=== PATIENT | male | born 1990 | race Caucasian/White ===

== ENCOUNTER 2023-11-14 05:26 | Emergency (ER) | payer SELFPAY ==
[2023-11-14 05:38] VITALS: BP 130/114
--- NOTE | 2023-11-14 06:23 | ED.GENMED ---
Addendum entered and electronically signed by Suraj Ulrich DO 11/14/23 13:10:
Acetaminophen trending down
Original Note:
History of Present Illness
General
Chief Complaint: Crisis Evaluation
Source: patient
Exam Limitations: none
Time Seen by Provider: 11/14/23 06:04
Nursing documentation reviewed up to this point in time: agreed with
Travel History
Have you had any contact with someone who has COVID-19?: No
Do you have any symptoms of coronavirus? Fever > 100 degrees, chills, cough, shortness of breath, sore throat, loss of taste or smell, muscle aches, or headache?: No
History of Present Illness
History of Present Illness:
33-year-old male presents via police for evaluation apparently has been depressed, using methamphetamine took a bottle of Benadryl to try to harm himself denies any other coingestions
Has not slept in a few nights
Past History
Past History
ED Past Medical History: Psychiatric
Social History
Tobacco: Non-smoker
Alcohol: None
Employment: Employed
Review of Systems
Review of Systems
Constitutional: Reports sleep disturbance
EENT: Reports no symptoms
Cardiac: Reports no symptoms
ABD/GI: Reports no symptoms
Phy Exam
Physical Exam
Physical Exam:
Physical Exam
General: Pacing around the room
Neck: Lips are slightly
Heart: Tachycardic
Lungs: no acute respiratory distress. clear bilaterally
Neuro: alert and oriented. no focal neurological deficits
Skin: no rash
Psychiatric: Agitated tearful cooperative
Extremities: no edema.
Course
Orders/Labs/Results
Orders:
Orders
11/14/23 06:20
Electrocardiogram (*1) Stat
Reason for Study: Other
Other Reason for Exam: overdose
Cardiac Monitoring- Treatment ONCE
EKG- Treatment ONCE
IV Insert/Care/Rem.- Treatment PRN
Urine Drug Abuse Screen Urgent
0.9% Sodium Chloride 1000 ml [Nss] 1,000 ml IV BOLUS
Lorazepam [Ativan] 2 mg IV NOW STA
11/14/23 06:47
Crisis Consult Routine
Reason for Consult: manic od
11/14/23 06:49
Asenapine Sublingual [Saphris] 5 mg SL NOW STA
11/14/23 07:11
Haloperidol Lactate [Haldol] 5 mg .ROUTE .STK-MED ONE
Haloperidol Lactate [Haldol] 5 mg IM NOW STA
Lorazepam [Ativan] 2 mg IM NOW STA
11/14/23 08:12
Acetaminophen Urgent
Alcohol Urgent
Basic Metabolic Panel Urgent
Complete Blood Count/With Diff Urgent
Salicylate Urgent
Abnormal Lab Results
11/14/23
08:12
Absolute Lymphs (auto) 0.9 L 10^3/uL
(1.2-3.4)
Neutrophils % 83.1 H %
(42.2-75.2)
Lymphocytes % 11.2 L %
(20.5-51.1)
Salicylates < 1.0 L mg/dl
(2.0-20.0)
Acetaminophen 32 H ug/ml
(10-30)
11/14/23 08:12
11/14/23 08:12
Vital Signs
Initial and Last Documented VS:
Initial Vital Signs
Temp Pulse Resp BP Pulse Ox
97.8 F 109 24 130/114 94
11/14/23 05:38 11/14/23 05:38 11/14/23 05:38 11/14/23 05:38 11/14/23 05:38
Last Documented Vital Signs
Temp Pulse Resp BP Pulse Ox
97.8 F 109 24 130/114 94
11/14/23 05:38 11/14/23 05:38 11/14/23 05:38 11/14/23 05:38 11/14/23 05:38
MDM/Problems Addressed
Differential Diagnosis Includes:
Overdose bipolar amphetamine abuse
MDM/Problems Addressed:
Not sleeping over the
*Pulse Oximetry
Patient hypoxic: no
*EKG
Interpreted by ED Provider?: Yes
Interpretation: abnormal
Comparison EKG: no comparison EKG present
Heart Rate: 110
Rate: tachycardiac
Rhythm: sinus
Ischemia: non-specific ST changes
*Accessibility Lift Technician Interpretation
Rate: tachycardiac
Interpretation: abnormal
Heart Rate: 110
Rhythm: sinus
*Critical Care Note
Total Time (30-74mins, 75-104mins- exclusive of procedures): Not Applicable
Data Reviewed
Source: patient
Update Note
Update Note:
9:30 PM labs are noted does have some acetaminophen in his system perhaps he took Tylenol p.m. instead of Benadryl, will repeat his level in a few hours
ED Attending Note
-
Portions of this chart may have been created with voice recognition software.� Occasional wrong word or��sound alike� substitutions may have occurred due to the inherent limitations of voice recognition software.
Discharge Plan
Departure
Prescriptions:
No Action
No Current Medications
0
Referrals:
NONE,* [Family Provider] -
Interventions
Interventions:
*General Assessment Last Done: 11/14/23 05:38
*Neglect/Abuse Screening Last Done: 11/14/23 05:38
ED- Fall Risk Assessment Last Done: 11/14/23 05:38
*ED COVID-19 Vaccine History Last Done: 11/14/23 05:38
[2023-11-14] MEDS: HALDOL 5 MG IM (07:20)
[2023-11-14] MEDS: ATIVAN 2 MG IM (07:20)
[2023-11-14 08:00] VITALS: BP 105/70
[2023-11-14 08:26] LABS: % Basophils 0.3 % (0-2); % Eosinophils 0.3 % (0-6); % Immature Granulocytes 0.5 % (0-0.5); % Lymphocytes 11.2 % (20.5-51.1); % Monocytes 4.6 % (1.7-9.3); % Neutrophils 83.1 % (42.2-75.2); Absolute Lymphocytes 0.9 10^3/uL (1.2-3.4); Absolute Monocytes 0.4 10^3/uL (0.1-0.6); Absolute Neutrophils 6.4 10^3/uL (1.4-6.5); Hematocrit 43.6 % (39.0-52.0); Hemoglobin 15.3 g/dL (13.0-18.0); Mean Corp Hgb Conc. 35.1 g/dL (33.0-37.0); Mean Corpuscular Hgb 30.4 pg (27.0-31.0); Mean Corpuscular Volume 86.5 fL (80.0-94.0); Mean Platelet Volume 8.8 fL (7.4-10.4); Nucleated Red Blood Cells % 0 % (-); Platelet Count 263 10^3/uL (130-400); Red Blood Cell Count 5.04 10^6/uL (4.70-6.10); Red Cell Dist. Width 12.3 % (11.5-14.5); White Blood Cell Count 7.7 10^3/uL (4.8-10.8)
[2023-11-14 08:43] LABS: Acetaminophen 32 ug/ml (10-30); Alcohol None Detected; Blood Urea Nitrogen 15 mg/dl (9-20); Carbon Dioxide 23 mmol/L (22-30); Chloride 104 mmol/L (98-107); Estimated Creatinine Clearance 103 ml/min; Glucose 95 mg/dl (70-99); Salicylate < 1.0 mg/dl (2.0-20.0); Sodium 138 mmol/L (135-145); eGFR > 60.00
[2023-11-14] MEDS: NSS 1000 IV (10:17)
[2023-11-14 10:40] LABS: COVID-19 Antigen Negative (Negative)
[2023-11-14 13:01] LABS: Acetaminophen 15 ug/ml (10-30)
[2023-11-14 13:21] LABS: Amphetamines Positive (Negative); Benzodiazepines Positive (Negative); Methamphetamines Positive (Negative)
[2023-11-14 13:22] LABS: Barbiturates Negative (Negative); Buprenorphine Negative (Negative); Cocaine Negative (Negative); Marijuana Negative (Negative); Methadone Negative (Negative); Opiates Negative (Negative); Phencyclidine Negative (Negative); Tricyclic Antidepressants Negative (Negative)
[2023-11-14 13:54] LABS: Fentanyl, Urine Negative (Negative)
[2023-11-14 18:11] VITALS: BP 136/78
== END 2023-11-14 18:15 ==
LOC: EMR 05:26
PROVIDERS: EMERGENCY PHYSICIAN Emergency Medicine
DX: F30.9 Manic episode, unspecified (principal); Z11.52 Encounter for screening for COVID-19
CPT/HCPCS: 99285; 96360; 96372 ×2; 80048; 80143; 80179; 80306; 80307; 82077; 85025; 87811; 93005